=== PATIENT | female | born 1955 | race Caucasian/White ===

== ENCOUNTER 2020-12-12 22:25 | Emergency (ER) | payer MEDICARE, MEDICAID ==
[~2020-12-12] VITALS: Ht 170.2 cm; Wt 137.0 kg
[2020-12-12 23:27] LABS: BASOPHILS % 0.4 % (0.0-2.0); EOSINOPHILS % 3.9 % (0.0-5.0); HEMATOCRIT. 34.8 % (36.0-48.0); HEMOGLOBIN. 11.3 g/dL (12.0-16.0); LYMPHOCYTES % 15.1 % (20.0-50.0); MEAN CORPUSCULAR HEMOGLOBIN 27.3 pg (28.0-32.0); MEAN CORPUSCULAR VOLUME 84.2 fL (81.0-99.0); MEAN PLATELET VOLUME 7.4 fl (7.4-10.4); NEUTROPHILS % 74.6 % (40.0-76.0); PLATELET 315 x1000/uL (130-400); RED BLOOD CELL COUNT 4.13 mill/uL (4.2-5.4); RED CELL DISTRIBUTION WIDTH 15.2 % (11.6-14.6)
[2020-12-12 23:33] LABS: CHLORIDE 104 mEq/L (98-107)
[2020-12-13] MEDS ORDERED: KETOROLAC 15MG/ML VIAL IM ONE (00:30)
[2020-12-13 01:46] VITALS: BP 112/72
== END 2020-12-13 01:50 | disposition home or self-care (01) ==
LOC: ER 22:25
DX: R60.0 Localized edema (principal); R73.09 Other abnormal glucose; I10 Essential (primary) hypertension
CPT/HCPCS: 36415; 80053; 83036; 83880; 85025; 93005; 93970; 96372; 99285; J1885